=== PATIENT | female | born 1980 | race African-American/Black ===

== ENCOUNTER 2018-04-26 15:26 | Emergency (ER) | payer MEDICAID ==
[~2018-04-26] VITALS: Ht 177.8 cm; Wt 80.8 kg
[2018-04-26 15:45] VITALS: BP 122/90
== END 2018-04-26 17:01 | disposition left against medical advice (07) ==
LOC: ER 15:26
DX: Z53.21 Procedure and treatment not carried out due to patient leaving prior to being seen by health care provider (principal); R73.9 Hyperglycemia, unspecified
CPT/HCPCS: 82962